=== PATIENT | female | born 1975 | race Caucasian/White ===

== ENCOUNTER 2016-12-28 15:30 | Emergency (ER) | payer OTHER ==
[2016-12-28 16:22] VITALS: BP 97/65; PULSE 66; TEMP 98.1; BMI 20.1
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
--- NOTE | 2016-12-29 10:45 | PDOC ---
*Physical Exam - Vital Signs Last Vital Signs Temp Pulse Resp BP Pulse Ox 98.1 F 66 18 97/65 96 12/28/16 15:32 12/28/16 15:32 12/28/16 15:32 12/28/16 15:32 12/28/16 15:32 Medical Decision Making - Medical Decision Making 12/29/16 10:35 Received a call from Radiologist Xray shows possible Radial Ulnar Dissociation 12/29/16 10:[address] Kraus This is not a reducible in the ER and could possibly be her anatomy They will need comparison views If this is something that needs to be fixed, it is operative Recommends splint and follow up with Dr Velez (pt already referred to their office) *DC/Admit/Observation/Transfer Diagnosis at time of Disposition: Wrist injury Qualifiers: Encounter type: initial encounter Laterality: right Qualified Code(s): S69.91XA - Unspecified injury of right wrist, hand and finger(s), initial encounter - Discharge Dispostion Disposition: HOME Condition at time of disposition: Improved - Referrals Referrals: Guille Velez MD [Staff Physician] - 1 week - Patient Instructions Printed Discharge Instructions: DI for Wrist Sprain Additional Instructions: Rest, ice, elevate, Advil or Aleve. Although x-ray today is negative for fracture, occasionally the scaphoid bone in the wrist can be broken and not show up on original x-ray. If your pain persists, you may need further examination and additional x-ray views within 1- 2 weeks. You are referred to an orthopedic surgeon for recheck. Although it is unlikely, if your scaphoid bone is fractured, you may suffer permanent disability if it is not treated adequately. This is why follow-up is essential. - Post Discharge Activity
== END 2016-12-28 17:35 | disposition home or self-care (01) ==
LOC: FER 15:30
DX: S69.91XA Unspecified injury of right wrist, hand and finger(s), initial encounter (principal); W22.01XA Walked into wall, initial encounter; Y93.89 Activity, other specified; Y92.009 Unspecified place in unspecified non-institutional (private) residence as the place of occurrence of the external cause
CPT/HCPCS: 73110-TC-RT; 99283-25

== ENCOUNTER 2019-07-20 17:10 | Emergency (ER) | payer OTHER ==
[2019-07-20 17:14] VITALS: BP 111/77; PULSE 73; TEMP 98.6; BMI 20.1
--- NOTE | 2019-07-20 17:30 | PDOC ---
History of Present Illness - General Chief Complaint: Injury Stated Complaint: B/L ARM INJURY S/P witnessed Fall Time Seen by Provider: 07/20/19 17:19 - History of Present Illness Initial Comments: 07/20/19 17:24 Chief complaint: Pain and swelling left upper arm HPI: Patient fell earlier today, injuring her left arm. She has noticed swelling, discoloration, and pain over the biceps. There is tingling over the ulnar aspect of the forearm and hand. There is no weakness. There is no radiation of the pain. Review of systems: As above. Otherwise negative. No head or neck injury, significant injury to the chest abdomen spine pelvis or other extremities. She is admits to impacting the right upper arm and left buttock as well, but there is no swelling or pain. Past medical history: Healthy female other than longstanding cardiac arrhythmia that is controlled on beta-blockers. No history of PA, CVA, PVD, diabetes, cancer Social/family history reviewed and noncontributory Physical exam: Alert and oriented well-developed well-nourished no acute distress cheerful and cooperative Afebrile, vital signs normal Head atraumatic. PERRLA, fundi benign, ENT clear Neck without tenderness or deformity, full range of motion without pain Lungs clear, full breath sounds bilaterally, no rib cage or chest wall deformity or tenderness CV S1-S2 normal without murmur rub or gallop pulses full and symmetric no JVD or edema no bruits 80 and regular Abdomen soft nontender without mass or organomegaly. No CVAT Spine/pelvis without deformity or point tenderness Extremities without visible or palpable trauma or limited range of motion except for the left upper arm. There is a 4 cm hematoma, superficial, over the volar aspect of the upper arm just proximal to the antecubital region. This area is mildly tender. However, distal pulses are full. There is no demonstrable sensory or motor deficit, although there is mild tingling in the distribution of the ulnar nerve. Neurological C2 to 12 intact. Strength full and symmetric. No focal sensorimotor deficits. Gait stable and unimpaired Impression: Contusion, hematoma Plan: Reassure. Ice for 24 to 48 hours, then heat. Rest and elevation. Recheck 2 to 3 days primary physician or return to the ER if symptoms are worse. Fully ambulatory and in no significant pain or other distress at discharge. Past History - Past Medical History Allergies/Adverse Reactions: Allergies Allergy/AdvReac Type Severity Reaction Status Date / Time No Known Allergies Allergy Verified 12/28/16 16:16 Home Medications: Ambulatory Orders NK [No Known Home Medication] 12/28/16 Cardiac Disorders: Yes (palpitations) COPD: No - Surgical History Cardiac Surgery: Yes (ablation) - Psycho Social/Smoking Cessation Hx Smoking History: Never smoked Hx Alcohol Use: No Drug/Substance Use Hx: No *Physical Exam - Vital Signs Last Vital Signs Temp Pulse Resp BP Pulse Ox 98.6 F 73 18 111/77 100 07/20/19 17:11 07/20/19 17:11 07/20/19 17:11 07/20/19 17:11 07/20/19 17:11 Discharge - Discharge Information Problems reviewed: Yes Clinical Impression/Diagnosis: Contusion, upper arm Qualifiers: Encounter type: initial encounter Laterality: left Qualified Code(s): S40.022A - Contusion of left upper arm, initial encounter Condition: Stable Disposition: HOME - Admission No - Follow up/Referral - Patient Discharge Instructions Patient Printed Discharge Instructions: DI for Hematoma (Bruise) Additional Instructions: Rest, no vigorous or strenuous use of the left arm for approximately 1 week. Ice for 24 to 48 hours, then heat. Follow-up primary physician in 3 to 5 days. If symptoms worsen or additional symptoms develop, return to the ER for further evaluation. - Post Discharge Activity
== END 2019-07-20 17:55 | disposition home or self-care (01) ==
LOC: FER 17:10
DX: S40.022A Contusion of left upper arm, initial encounter (principal); R00.2 Palpitations; I51.9 Heart disease, unspecified
CPT/HCPCS: 99281-25

== ENCOUNTER 2020-08-02 14:33 | Emergency (ER) | payer OTHER | END 2020-08-02 14:39 | disposition home or self-care (01) | LOC: JVIRT 14:33 | DX: Z11.52 Encounter for screening for COVID-19 (principal) | CPT/HCPCS: C9803; G2012-GT; U0003 ==

== ENCOUNTER 2023-07-01 17:49 | Emergency (ER) | payer OTHER ==
[2023-07-01 18:07] VITALS: BP 93/63; PULSE 75; RESP 18; TEMP 97.8; BMI 20.1
== END 2023-07-01 20:54 | disposition home or self-care (01) ==
LOC: FER 17:49
DX: R05.9 Cough, unspecified (principal); R09.81 Nasal congestion; M79.10 Myalgia, unspecified site; B97.4 Respiratory syncytial virus as the cause of diseases classified elsewhere; R06.2 Wheezing; Z20.822 Contact with and (suspected) exposure to COVID-19
CPT/HCPCS: 0241U-QW; 71046-TC-FY; 99284-25